=== PATIENT | female | born 1955 | race Caucasian/White ===

== ENCOUNTER 2019-02-03 06:10 | Day surgery (SDC) | payer BC ==
[2019-01-29 10:09] LABS: Basophils # (auto) 0 uL; Basophils % (auto) 0.3 % (0.0-2.0); Eosinophils # (auto) 0.1 uL; Eosinophils % (auto) 1.7 % (0.0-7.0); Hemoglobin 14.2 g/dL (12.2-16.2); Lymphocytes # (auto) 2.3 uL; Lymphocytes % (auto) 29.4 % (10.0-50.0); Mean Corpuscular Hemoglobin 31.1 pg (28.0-32.0); Mean Corpuscular Hgb Conc. 33.8 g/dL (32.0-36.0); Mean Corpuscular Volume 91.9 fL (80.0-100.0); Monocytes # (auto) 0.7 uL; Monocytes % (auto) 8.4 % (0.0-12.0); Neutrophils # (auto) 4.7 uL; Neutrophils % (auto) 60.2 % (37.0-80.0); Platelet Count (auto) 357 10^3/uL (140-450); Red Blood Cells 4.57 10^6/uL (4.0-5.20); Red Cell Distribution Width 12.3 % (11.8-14.3); White Blood Cell 7.8 10^3/uL (4.4-10.8)
[2019-01-29 10:12] LABS: Urine Bacteria NONE SEEN /hpf (None Seen); Urine Blood Negative /uL (Negative); Urine Mucus FEW (None Seen); Urine Specific Gravity 1.009 (1.001-1.035); Urine WBC <1 /hpf (0 - 5)
[2019-01-29 10:25] LABS: INR 0.95 (0.9-1.15); Partial Thromboplastin Time 24.3 sec (23.64-32.05)
[2019-01-29 10:30] LABS: Albumin 4.3 g/dL (3.4-5.0); BUN/Creatinine Ratio 17.7; Calcium 9.8 mg/dL (8.5-10.1); Potassium 4.3 mmol/L (3.5-5.1)
[2019-01-29 10:33] LABS: Bilirubin, Total 0.4 mg/dL (0.2-1.0); Total Protein 7.7 g/dL (6.4-8.2)
[~2019-02-03] VITALS: Ht 160 cm; Wt 71.2 kg
[~2019-02-03 06:10] MED LIST: ACYC1CAP23 PO; ATOR10TA52 PO; HYDR-4833 PO; MELA3TAB27 PO; NAP500T PO; [UNRECOGNIZED DRUG - CODE] SC
[2019-02-03] MEDS ORDERED: CLINDAMYCIN 600MG IV 50 ML IV ONE (06:33)
[2019-02-03] MEDS ORDERED: SUCCINYLCHOLINE CHLORIDE 20 MG/ML 10ML VIAL IV ONE (07:05)
[2019-02-03] MEDS ORDERED: fentaNYL CITRATE 100 MCG/2 ML VL IV PRN (07:15)
[2019-02-03] MEDS ORDERED: HYDROmorphone HCL 2 MG/ML VL IV PRN (07:15)
[2019-02-03] MEDS ORDERED: KETOROLAC TROMETH 30 MG/ML 1ML VIAL IV ONE (07:15)
[2019-02-03] MEDS ORDERED: MORPHINE SULFATE 4 MG/ML SYR/VIAL IV PRN (07:15)
[2019-02-03] MEDS ORDERED: METOCLOPRAMIDE HCL 5MG/ml INJ 2ml VIAL IV PRN (07:15)
[2019-02-03] MEDS ORDERED: fentaNYL CITRATE 100 MCG/2 ML VL ONE (07:21)
[2019-02-03] MEDS ORDERED: MIDAZOLAM HCL 1MG/1ML-2 ML VIAL ONE (07:21)
[2019-02-03] MEDS ORDERED: ONDANSETRON HCL 4 MG/2 ML VIAL ONE (07:21)
[2019-02-03] MEDS ORDERED: SODIUM CHLORIDE LOCK 10 ML ONE (07:21)
[2019-02-03] MEDS ORDERED: PROPOFOL 10 MG/ML 20 ML IV ONE (07:21)
[2019-02-03] MEDS ORDERED: LIDOCAINE 1% HCL (LOCAL ANESTH.) INJ 20ML MDV ONE (07:56)
[2019-02-03] MEDS ORDERED: BUPIVACAINE HCL 50 ML ONE (07:56)
[2019-02-03 09:10] VITALS: BP 123/69
== END 2019-02-03 09:21 | disposition home or self-care (01) ==
LOC: SUR 06:10
PROVIDERS: ATTEND Surgery
DX: D17.21 Benign lipomatous neoplasm of skin and subcutaneous tissue of right arm (principal); E78.00 Pure hypercholesterolemia, unspecified; J45.909 Unspecified asthma, uncomplicated; M19.90 Unspecified osteoarthritis, unspecified site; E83.52 Hypercalcemia; Z79.899 Other long term (current) drug therapy; Z88.8 Allergy status to other drugs, medicaments and biological substances
CPT/HCPCS: 24071; 36415; 80053; 81001; 85025; 85610; 85730; 88305; J0330; J2001; J2250; J2405; J2704; J3010; J3490